=== PATIENT | male | born 1970 | race Caucasian/White ===

== ENCOUNTER 2018-08-27 08:19 | Emergency (ER) | payer OTHER ==
[2018-08-27 08:59] LABS: Absolute Lymphocytes (CBC) 1.1 K/uL (0.7-4.9); Absolute Monocytes 0.3 K/uL (0.1-1.3); Absolute Neutrophil 3.1 K/uL (1.8-8.0); Basophils % 1.4 % (0-1.3); Eosinophils % 9.4 % (0-4.4); Hematocrit 48.5 % (39.6-49.0); Lymphocytes % 21.3 % (15.3-44.8); MPV 9.4 fL (7.6-11.3); Monocytes % 6.4 % (3.3-12.3); RBC Red Blood Cell Count 5.46 M/uL (4.33-5.43)
[2018-08-27 09:20] LABS: ALT/SGPT 29 U/L (12-78); AST/SGOT 18 U/L (15-37); Alkaline Phosphatase 56 U/L (45-117); BUN Blood Urea Nitrogen 16 mg/dL (7-18); Bicarbonate 26 mmol/L (21-32); Bilirubin Direct 0.1 mg/dL (0-0.2); Bilirubin Total 0.6 mg/dL (0.2-1.0); Glucose Level 152 mg/dL (74-106); NT PRO-BNP 114 pg/mL (<125); Potassium 3.9 mmol/L (3.5-5.1); Protein, Total 7.6 g/dL (6.4-8.2); Sodium Level 141 mmol/L (136-145); Troponin (Emerg Dept Use Only) < 0.02 ng/mL (0.0-0.045)
--- NOTE | 2018-08-27 09:27 | RAD REPORT ---
EXAM DESCRIPTION: RAD - Chest Single View - 08/27/2018 9:14 am CLINICAL HISTORY: weakness Chest pain. COMPARISON: No comparisons FINDINGS: Portable technique limits examination quality. The lungs are grossly clear. The heart is normal in size. No displaced fractures. IMPRESSION: No acute intrathoracic process suspected.
--- NOTE | 2018-08-27 09:46 | RAD REPORT ---
EXAM DESCRIPTION: CT - Head Brain Wo Cont - 08/27/2018 9:34 am CLINICAL HISTORY: DIZZINESS Headache, drowsiness. COMPARISON: No comparisons TECHNIQUE: All CT scans are performed using dose optimization technique as appropriate and may inclu de automated exposure control or mA/KV adjustment according to patient size. FINDINGS: No intracranial hemorrhage, hydrocephalus or extra-axial fluid collection.No areas of brai n edema or evidence of midline shift. The paranasal sinuses and mastoids are clear. The calvarium is intact. IMPRESSION: No acute intracranial abnormality.
[2018-08-27] MEDS ORDERED: NA CHLORIDE 0.9% 1,000 ML ONE (09:53)
--- NOTE | 2018-08-27 10:30 | ER ---
Nurse's Notes [facility] Name: Willian Holden Age: 48 yrs Sex: Male : 1970 Arrival Date: 08/27/2018 Time: 08:16 Bed 20 Private MD: Diagnosis: Volume depletion Presentation: 08/27 08:12 Presenting complaint: EMS states: was driving and started becoming dizzy and sv lightheaded, drove to work and walked to the nurses station. On EMS arrival BP 190/110 HR-115, recent BP 153/76 HR-90s 99% RA. Denies CP, ALDANA. c/o mild SOB. Transition of care: patient was not received from another setting of care. Onset of symptoms was August 27, 2018. Risk Assessment: Do you want to hurt yourself or someone else? Patient reports no desire to harm self or others. Initial Sepsis Screen: Does the patient meet any 2 criteria? No. Patient's initial sepsis screen is negative. Does the patient have a suspected source of infection? No. Patient's initial sepsis screen is negative. Care prior to arrival: None. 08:12 Method Of Arrival: EMS: [facility] sv 08:12 Acuity: HIPOL[place] 3 sv Triage Assessment: 08:15 General: Appears in no apparent distress. comfortable, well groomed, well developed, sv Behavior is calm, cooperative, appropriate for age. Pain: Denies pain. Neuro: Level of Consciousness is awake, alert, obeys commands, Oriented to person, place, time, situation, Moves all extremities. Full function Gait is steady, Speech is normal. Cardiovascular: Reports lightheadedness, shortness of breath, Denies chest pain, Heart tones S1 S2 present Patient's skin is warm and dry. Rhythm is sinus rhythm. Respiratory: Airway is patent Respiratory effort is even, unlabored, Respiratory pattern is regular, symmetrical, Breath sounds are clear bilaterally. Derm: Skin is pink, warm \T\ dry. Musculoskeletal: Range of motion: intact in all extremities. Historical: - Allergies: 08:20 No Known Allergies; sv - PMHx: 08:20 None; sv - PSHx: 08:20 None; sv - Immunization history:: Adult Immunizations up to date. - Social history:: Smoking status: Patient/guardian denies using tobacco, Patient/guardian denies using alcohol. - Ebola Screening: : No symptoms or risks identified at this time. Screenin:27 Abuse screen: Denies threats or abuse. Denies injuries from another. Nutritional sv screening: No deficits noted. Tuberculosis screening: No symptoms or risk factors identified. Fall Risk None identified. Assessment: 09:45 Reassessment: Patient appears in no apparent distress at this time. No changes from sv previously documented assessment. Patient and/or family updated on plan of care and expected duration. Pain level reassessed. Patient is alert, oriented x 3, equal unlabored respirations, skin warm/dry/pink. Vital Signs: 08:20 BP 159 / 86; Pulse 80; Resp 18; Temp 98(O); Pulse Ox 99% ; Weight 138.35 kg; Height 6 sv ft. 6 in. (198.12 cm); Pain 0/10; 09:08 BP 134 / 67 Supine; Pulse 66; em1 09:09 BP 113 / 75 Sitting; Pulse 67; em1 09:09 BP 133 / 70 Standing; Pulse 70; em1 09:47 BP 139 / 67; Pulse 69; Resp 16; Pulse Ox 100% ; sv 08:20 Body Mass Index 35.25 (138.35 kg, 198.12 cm) sv NIH Stroke Scale Scores: 09:42 NIHSS Score: 0 kb ED Course: 08:16 Patient arrived in ED. sv 08:16 Nancie Richards, RN is Primary Nurse. sv 08:19 Triage completed. sv 08:20 Arm band placed on. sv 08:27 Talia Kowalski FNP-C is [facility]. kb 08:27 Claudy Guan MD is Attending Physician. kb 08:27 Patient has correct armband on for positive identification. Placed in gown. Bed in low sv position. Call light in reach. quality assurance monitor body on. Pulse ox on. NIBP on. Door closed. Head of bed elevated. 08:43 EKG done, by multi craft maintenance technician. reviewed by Talia VARGAS. at1 08:52 Initial lab(s) drawn, by il, sent to lab. Inserted saline lock: 20 gauge in right em1 forearm, using aseptic technique. Blood collected. 09:14 XRAY Chest (1 view) In Process Unspecified. EDMS 09:33 CT completed. Patient tolerated procedure well. Patient moved to CT via wheelchair. sj Patient moved back from CT. 09:35 CT Head Brain wo Cont In Process Unspecified. EDMS 11:17 No provider procedures requiring assistance completed. IV discontinued, intact, ss bleeding controlled, No redness/swelling at site. Pressure dressing applied. Administered Medications: 09:44 Drug: NS 0.9% 1000 ml Route: IV; Rate: 1000 ml; Site: right forearm; sv 11:18 Follow up: IV Status: Completed infusion ss Outcome: 10:29 Discharge ordered by . silvia 11:17 Discharged to home ambulatory, with family, with friend. ss 11:17 Condition: improved 11:17 Discharge instructions given to patient, family, friend, Instructed on discharge instructions, follow up and referral plans. Demonstrated understanding of instructions, follow-up care. 11:18 Patient left the ED. NIH Stroke Scale - NIH Stroke Score Date: 08/27/2018 Time: 09:42 Total Score = 0 1a. Level of Consciousness (LOC) - 0(Alert) 1b. Level of Consciousness (LOC) (Year \T\ Age) - 0(Both) 1c. LOC Commands (Open \T\ Closes Eyes/Facs Teacher) - 0(Both) 2. Best Gaze (Lateral Gaze Paresis) - 0(Normal) 3. Visual Field Loss - 0(No visual loss) 4. Facial Palsy - 0(Normal) 5a. Left Arm: Motor (10-second hold) - 0(No drift) 5b. Right Arm: Motor (10-second hold) - 0(No drift) 6a. Left Leg: Motor (5-second hold - always test supine) - 0(No drift) 6b. Right Leg: Motor (5-second hold - always test supine) - 0(No drift) 7. Limb Ataxia (finger/nose \T\ heel/mejia - test with eyes open) - 0(Absent) 8. Sensory Loss (pinprick arms/legs/face) - 0(Normal) 9. Best Language: Aphasia (description/naming/reading) - 0(No aphasia) 10. Dysarthria (speech clarity - read or repeat words) - 0(Normal) 11. Extinction and Inattention (visual/tactile/auditory/spatial/personal) - 0(No abnormality) Initials: kb Signatures: Dispatcher [employer] EDTalia Cruz, DAVID-C CERAMIC PAINTER-Nancie Ley RN RN Jessica Herring, [place] em1 Zena Adan RN RN ss Sapna Avila, aligning checker EKG Tat1 Corrections: (The following items were deleted from the chart) 08:21 08:20 BP 159 / 86; Pulse 105bpm; Resp 18bpm; Pulse Ox 99%; 138.35 kg; Height 6 sv ft. 6 in.; BMI: 35.2; Pain 0/10; sv 08:25 08:20 BP 159 / 86; Pulse 80bpm; Resp 18bpm; Pulse Ox 99%; 138.35 kg; Height 6 sv ft. 6 in.; BMI: 35.2; Pain 0/10; sv
--- NOTE | 2018-08-27 10:30 | EDPHYS ---
Physician Documentation [facility] Name: Willian Holden Age: 48 yrs Sex: Male : 1970 Arrival Date: 08/27/2018 Time: 08:16 Bed 20 Private MD: ED Physician Claudy Guan HPI: 08/27 09:45 This 48 yrs old Male presents to ER via EMS with complaints of Dizziness, High Blood kb Pressure. 09:45 The patient presents with dizziness. Onset: The symptoms/episode began/occurred this morning. Context: occurred at home, occurred while the patient was sitting, just prior to the episode the patient experienced no apparent symptoms. Modifying factors: The symptoms are alleviated by lying down, the symptoms are aggravated by standing up. Associated signs and symptoms: The patient has no apparent associated signs or symptoms. Severity of symptoms: At their worst the symptoms were moderate in the emergency department the symptoms are unchanged. Patient's baseline: Neuro: alert and fully oriented, Motor: no deficits, Ambulation: walks without assistance, Speech: normal. The patient has not experienced similar symptoms in the past. The patient has not recently seen a physician. Pt reports he was driving to work, became lightheaded and had to stop, get out and walk around. Reports dizziness and lightheadedness. worse when standing, better when laying down.. Historical: - Allergies: 08:20 No Known Allergies; sv - PMHx: 08:20 None; sv - PSHx: 08:20 None; sv - Immunization history:: Adult Immunizations up to date. - Social history:: Smoking status: Patient/guardian denies using tobacco, Patient/guardian denies using alcohol. - Ebola Screening: : No symptoms or risks identified at this time. ROS: 09:43 Constitutional: Negative for fever, chills, and weight loss, Eyes: Negative for injury, kb pain, redness, and discharge, ENT: Negative for injury, pain, and discharge, Neck: Negative for injury, pain, and swelling, Cardiovascular: Negative for chest pain, palpitations, and edema, Respiratory: Negative for shortness of breath, cough, wheezing, and pleuritic chest pain, Abdomen/GI: Negative for abdominal pain, nausea, vomiting, diarrhea, and constipation, MS/Extremity: Negative for injury and deformity, Skin: Negative for injury, rash, and discoloration. 09:43 Neuro: Positive for dizziness, lightheaded. Exam: 09:25 ECG was reviewed by the Attending Physician. kb 09:42 Constitutional: This is a well developed, well nourished patient who is awake, alert, kb and in no acute distress. Head/Face: Normocephalic, atraumatic. Eyes: Pupils equal round and reactive to light, extra-ocular motions intact. Lids and lashes normal. Conjunctiva and sclera are non-icteric and not injected. Cornea within normal limits. Periorbital areas with no swelling, redness, or edema. ENT: Nares patent. No nasal discharge, no septal abnormalities noted. Tympanic membranes are normal and external auditory canals are clear. Oropharynx with no redness, swelling, or masses, exudates, or evidence of obstruction, uvula midline. Mucous membranes moist. Neck: Trachea midline, no thyromegaly or masses palpated, and no cervical lymphadenopathy. Supple, full range of motion without nuchal rigidity, or vertebral point tenderness. No Meningismus. Chest/axilla: Normal chest wall appearance and motion. Nontender with no deformity. No lesions are appreciated. Cardiovascular: Regular rate and rhythm with a normal S1 and S2. No gallops, murmurs, or rubs. Normal PMI, no JVD. No pulse deficits. Respiratory: Lungs have equal breath sounds bilaterally, clear to auscultation and percussion. No rales, rhonchi or wheezes noted. No increased work of breathing, no retractions or nasal flaring. Abdomen/GI: Soft, non-tender, with normal bowel sounds. No distension or tympany. No guarding or rebound. No evidence of tenderness throughout. Skin: Warm, dry with normal turgor. Normal color with no rashes, no lesions, and no evidence of cellulitis. MS/ Extremity: Pulses equal, no cyanosis. Neurovascular intact. Full, normal range of motion. Neuro: Awake and alert, GCS 15, oriented to person, place, time, and situation. Cranial nerves II-XII grossly intact. Motor strength 5/5 in all extremities. Sensory grossly intact. Cerebellar exam normal. Normal gait. Vital Signs: 08:20 BP 159 / 86; Pulse 80; Resp 18; Temp 98(O); Pulse Ox 99% ; Weight 138.35 kg; Height 6 sv ft. 6 in. (198.12 cm); Pain 0/10; 09:08 BP 134 / 67 Supine; Pulse 66; em1 09:09 BP 113 / 75 Sitting; Pulse 67; em1 09:09 BP 133 / 70 Standing; Pulse 70; em1 09:47 BP 139 / 67; Pulse 69; Resp 16; Pulse Ox 100% ; sv 08:20 Body Mass Index 35.25 (138.35 kg, 198.12 cm) sv NIH Stroke Scale Scores: 09:42 NIHSS Score: 0 kb MDM: 08:27 Patient medically screened. kb 09:26 Data reviewed: vital signs, nurses notes. Data interpreted: Pulse oximetry: on room air kb is 99 %. Interpretation: normal. 10:17 Counseling: I had a detailed discussion with the patient and/or guardian regarding: the kb historical points, exam findings, and any diagnostic results supporting the discharge/admit diagnosis, lab results, radiology results, the need for outpatient follow up, a family practitioner, to return to the emergency department if symptoms worsen or persist or if there are any questions or concerns that arise at home. 10:27 ED course: Symptoms have resolved. No dizziness upon standing. . kb 10:28 ED course: Pt has appt to establish care with PCP on Monday. Educated to keep BP log kb until then, increase fluid intake for hydration and to have A1C checked. . 08/27 08:39 Order name: Basic Metabolic Panel; Complete Time: 09:23 kb 08/27 08:39 Order name: CBC with Diff; Complete Time: 09:02 kb 08/27 08:39 Order name: LFT's; Complete Time: 09:23 kb 08/27 08:39 Order name: Magnesium; Complete Time: 09:23 kb 08/27 08:39 Order name: NT PRO-BNP; Complete Time: 09:23 kb 08/27 08:39 Order name: PT-INR; Complete Time: 09:02 kb 08/27 08:21 Order name: EKG; Complete Time: 08:22 sv 08/27 08:21 Order name: EKG - Nurse/Tech; Complete Time: 08:59 sv 08/27 08:39 Order name: Troponin (emerg Dept Use Only); Complete Time: 09:23 kb 08/27 08:39 Order name: XRAY Chest (1 view); Complete Time: 09:28 kb 08/27 08:39 Order name: Cardiac monitoring; Complete Time: 09:00 kb 08/27 09:23 Order name: CT Head Brain wo Cont; Complete Time: 09:47 kb 08/27 10:39 Order name: Urine Dipstick--Ancillary (enter results); Complete Time: 10:53 bd 08/27 08:39 Order name: IV Saline Lock; Complete Time: 08:52 kb 08/27 08:39 Order name: Labs collected and sent; Complete Time: 08:52 kb 08/27 08:39 Order name: O2 Per Protocol; Complete Time: 09:00 kb 08/27 08:39 Order name: O2 Sat Monitoring; Complete Time: 09:00 kb 08/27 08:39 Order name: Orthostatics; Complete Time: 09:10 kb 08/27 09:48 Order name: Urine Dipstick-Ancillary (obtain specimen); Complete Time: 10:40 kb EC:25 Rate is 75 beats/min. Rhythm is regular, Normal Sinus Rhythm. QRS [place] is Normal. HI kb interval is normal at 166 msec. QRS interval is normal at 98 msec. QT interval is normal at 398 msec. Clinical impression: Normal ECG. Interpreted by me. Reviewed by me. Administered Medications: 09:44 Drug: NS 0.9% 1000 ml Route: IV; Rate: 1000 ml; Site: right forearm; sv 11:18 Follow up: IV Status: Completed infusion ss Disposition: 08/27/18 10:29 Discharged to Home. Impression: Volume depletion. - Condition is Stable. - Discharge Instructions: Dehydration, Adult, [id number]. - Medication Reconciliation Form, Thank You Letter, Antibiotic Education, Prescription Opioid Use form. - Follow up: Emergency Department; When: As needed; Reason: Worsening of condition. Follow up: Private Physician; When: 2 - 3 days; Reason: Recheck today's complaints, Continuance of care, Re-evaluation by your physician. NIH Stroke Scale - NIH Stroke Score Date: 08/27/2018 Time: 09:42 Total Score = 0 1a. Level of Consciousness (LOC) - 0(Alert) 1b. Level of Consciousness (LOC) (Year \T\ Age) - 0(Both) 1c. LOC Commands (Open \T\ Closes Eyes/Russet Repairer) - 0(Both) 2. Best Gaze (Lateral Gaze Paresis) - 0(Normal) 3. Visual Field Loss - 0(No visual loss) 4. Facial Palsy - 0(Normal) 5a. Left Arm: Motor (10-second hold) - 0(No drift) 5b. Right Arm: Motor (10-second hold) - 0(No drift) 6a. Left Leg: Motor (5-second hold - always test supine) - 0(No drift) 6b. Right Leg: Motor (5-second hold - always test supine) - 0(No drift) 7. Limb Ataxia (finger/nose \T\ heel/mejia - test with eyes open) - 0(Absent) 8. Sensory Loss (pinprick arms/legs/face) - 0(Normal) 9. Best Language: Aphasia (description/naming/reading) - 0(No aphasia) 10. Dysarthria (speech clarity - read or repeat words) - 0(Normal) 11. Extinction and Inattention (visual/tactile/auditory/spatial/personal) - 0(No abnormality) Initials: kb Signatures: Dispatcher [employer] EDMS Talia Kowalski, DINING CHAIR SEAT CUSHION TRIMMER-C DINING CHAIR SEAT CUSHION TRIMMER-Nancie Ley, RN RN Zena Zamora RN RN ss Corrections: (The following items were deleted from the chart) 11:18 10:29 08/27/2018 10:29 Discharged to Home. Impression: Volume depletion. ss Condition is Stable. Discharge Instructions: Dehydration, Adult, [id number]. Forms are Medication Reconciliation Form, Thank You Letter, Antibiotic Education, Prescription Opioid Use. Follow up: Emergency Department; When: As needed; Reason: Worsening of condition. Follow up: Private Physician; When: 2 - 3 days; Reason: Recheck today's complaints, Continuance of care, Re-evaluation by your physician. kb
[2018-08-27 10:47] LABS: Urine Blood NEGATIVE (NEG); Urine Glucose NEGATIVE (NEG); Urine Protein NEGATIVE (NEG)
--- NOTE | 2018-08-27 11:54 | EKG ---
Test Date: 2018-08-27 Test Time: 08:41:50 Chipper Machine Operator: IRMA MEASUREMENT RESULTS: Intervals: Rate: 75 CO: 166 QRSD: 98 QT: 398 QTc: 444 [place]: P: 73 CO: 166 QRS: 86 T: 56 INTERPRETIVE STATEMENTS: Sinus rhythm with marked sinus arrhythmia Otherwise normal ECG No previous ECG available for comparison Electronically Signed On 08-27-18 11:53:34 CDT by Sudeep Verdin
== END 2018-08-27 11:18 | disposition home or self-care (01) ==
LOC: ER 08:19
DX: E86.9 Volume depletion, unspecified (principal)
CPT/HCPCS: 36415; 70450; 71045; 80048; 80076; 81003; 83735; 83880; 84484; 85025; 85610; 93005; J7030